=== PATIENT | male | born 1980 | race African-American/Black ===

== ENCOUNTER 2020-10-02 06:20 | Day surgery (SDC) | payer MEDICAID ==
[2020-10-02 06:57] LABS: BASOPHILS 0.5 % (0-2); EOSINOPHILS 2.8 % (0-7); HEMATOCRIT 44.2 % (42.0-54.0); HEMOGLOBIN 14.7 g/dL (13.5-17.5); IMMATURE GRANULOCYTES 0.2 % (0-5); LYMPHOCYTE ABS# 2.73 10x3/uL (1.32-3.57); LYMPHOCYTES 29.2 % (15-50); MCH 29.2 pg (26.0-34.0); MCHC 33.3 g/dL (31.0-37.0); MCV 87.7 fL (80.0-100.0); MEAN PLATELET VOLUME 10.2 fL (7.4-10.4); MONOCYTES 6.5 % (2-11); NEUTROPHIL ABS# 5.68 10x3/uL (1.78-5.38); NEUTROPHILS 60.8 % (40-80); PLATELET COUNT 220 10x3/uL (130-400); RBC 5.04 10x6/uL (4.20-6.10); RDW 13.6 % (11.5-14.5); WBC 9.4 10x3/uL (4.8-10.8)
[2020-10-02 07:05] LABS: ALBUMIN 3.6 g/dL (3.4-5.0); ANION GAP 13.8 mmol/L (8-16); BILIRUBIN - TOTAL 0.48 mg/dL (0.2-1.3); CALCIUM 8.6 mg/dL (8.5-10.1); CARBON DIOXIDE 23.8 mmol/L (21.0-32.0); CREATININE - SERUM 1.2 mg/dL (0.6-1.3); POTASSIUM - SERUM 3.6 mmol/L (3.5-5.1); PROTEIN - SERUM 7.8 g/dL (6.4-8.2)
== END 2020-10-02 09:14 | disposition home or self-care (01) ==
LOC: D.OPS 06:20
PROVIDERS: Internal Medicine Gastroenterology
DX: Z85.01 Personal history of malignant neoplasm of esophagus (principal); K21.00 Gastro-esophageal reflux disease with esophagitis, without bleeding; K44.9 Diaphragmatic hernia without obstruction or gangrene; F17.210 Nicotine dependence, cigarettes, uncomplicated; R12 Heartburn; A04.8 Other specified bacterial intestinal infections; K31.9 Disease of stomach and duodenum, unspecified; K29.70 Gastritis, unspecified, without bleeding; K22.9 Disease of esophagus, unspecified